=== PATIENT | male | born 1960 | race Caucasian/White ===

== ENCOUNTER 2018-01-02 15:10 | Emergency (ER) | payer OTHER ==
[2018-01-02 15:17] VITALS: TEMP 98.4; O2SAT 98
[2018-01-02] MEDS ORDERED: LIDOCAINE 1% 10 ML VIAL INJ ONE (15:21)
[2018-01-02] MEDS ORDERED: POVIDONE IODINE 10 % 15 ML UD TOP ONE (15:33)
[2018-01-02] MEDS ORDERED: TETANUS,DIPHTHERIA,PERTUSSIS 1 EA SYG IM ONE (15:34)
--- NOTE | 2018-01-02 15:44 | ED.PDOC ---
History of Present Illness - General Chief Complaint: General Stated Complaint: Fish hook to L hand Time Seen by Provider: 01/02/18 15:22 Source: patient Exam Limitations: no limitations - History of Present Illness Initial Comments: PT PRESENTS TO THE ED WITH A FISH HOOK TO THE LEFT 3RD DIGIT. PT REPORTS THAT HE STUMBLED ON A ROCK AND FELL IN THE WATER WHILE HOLDING A HOOK. INCIDENT OCCURRED JUST PRIOR TO ARRIVAL. PT DENIES ANY INJURIES A RESULT OF THE FALL. Timing/Duration: just prior to arrival Severity: moderate Location: hands Allergies/Adverse Reactions: Allergies NO KNOWN ALLERGY Allergy (Verified 01/02/18 15:17) Home Medications: Ambulatory Orders Amoxicillin & Pot Clavulanate [Augmentin] 875 mg PO BID #14 tab 01/02/18 Review of Systems - Review of Systems Constitutional: Denies: chills, fever EENTM: Denies: blurred vision, double vision Respiratory: Denies: cough, short of breath Cardiology: Denies: chest pain, palpitations Musculoskeletal: Denies: joint pain, joint swelling Past Medical History (General) - Patient Medical History Hx Stroke: No Hx Congestive Heart Failure: No Hx Hypertension: - Does not take medication, but has had elevated BP's Hx Diabetes: No - Vaccination History Hx Influenza Vaccination: Yes - 2016 Hx Pneumococcal Vaccination: Yes - Social History Hx Tobacco Use: Yes - Quit 10/2017 Hx Alcohol Use: No Family Medical History - Family History Father Family History: No Known Living Status: Physical Exam - Physical Exam General Appearance: Alert, No apparent distress, Well Developed, Well Groomed, Well Hydrated Eyes, Ears, Nose, Throat Exam: normal ENT inspection Neck: normal inspection Respiratory: no respiratory distress Extremity: normal inspection Skin Exam: warm/dry, normal color Skin Problem Location: upper extremities - LEFT 3RD DIGIT Skin Character: other - SMALL BARBED FISH HOOK EXTENDING OUT THE MEDIAL DISTAL 3RD DIGIT. Procedures - Foreign Body Removal Foreign Body Removal: fish hook - DIGIT WAS BLOCKED USING 1% LIDOCAINE. FISH HOOK WAS PUSHED THROUGH AND PULLED OUT. PT TOLERATED PROCEDURE WELL. FINGER THEN SOAKED IN BETADINE AND SALINE. DRESSING APPLIED BY NURSING STAFF. Foreign Body Physician Comment:: DR. GORDON Departure - Departure Clinical Impression: Fish hook injury of finger, Foreign body (FB) in soft tissue Time of Disposition: 15:48 Disposition: Discharge to Home or Self Care Condition: Good Departure Forms: ED Discharge - Pt. Copy, Patient Portal Self Enrollment Instructions: Foreign Body in Skin (DC) Referrals: [facility] [Provider Group] - 1-5 Days Prescriptions: Amoxicillin & Pot Clavulanate [Augmentin] 875 mg PO BID #14 tab Home Medications: Ambulatory Orders Amoxicillin & Pot Clavulanate [Augmentin] 875 mg PO BID #14 tab 01/02/18
[2018-01-02 15:50] VITALS: BP 153/96
[2018-01-02] MEDS ORDERED: ceFAZolin SODIUM 1 GM VIAL ONE (15:52)
[2018-01-02] MEDS ORDERED: WATER FOR INJ 10 ML VIAL INJ ONE (15:52)
[2018-01-02] MEDS ORDERED: ceFAZolin SODIUM 1 GM VIAL IM ONE ×2 (15:55→15:56)
== END 2018-01-02 16:13 | disposition home or self-care (01) ==
LOC: ER 15:10
DX: S60.453A Superficial foreign body of left middle finger, initial encounter (principal); W45.8XXA Other foreign body or object entering through skin, initial encounter; Z87.891 Personal history of nicotine dependence; Y92.89 Other specified places as the place of occurrence of the external cause; Z23 Encounter for immunization
CPT/HCPCS: 90471; 90715; A4216; J0690

== ENCOUNTER → 2018-04-02 | Outpatient (CLI) | payer OTHER | LOC: GMAM 15:30 | PROVIDERS: ATTEND Family Medicine | DX: Z12.5 Encounter for screening for malignant neoplasm of prostate (principal) ==

== ENCOUNTER → 2019-02-03 | Outpatient (CLI) | payer OTHER | LOC: GMAM 11:41 | PROVIDERS: ATTEND Family Medicine | DX: I10 Essential (primary) hypertension (principal) ==

== ENCOUNTER → 2019-10-01 | Outpatient (CLI) | payer OTHER ==
--- NOTE | 2019-10-01 14:08 | MRI ---
EXAM DESCRIPTION: Knee,Left: MRI. CLINICAL HISTORY: 59 years Male PAIN IN LEFT KNEE COMPARISON: Left knee radiographs on September 25. TECHNIQUE: Multiplanar, high-field MRI, multiple sequences, without contrast: Left knee. FINDINGS: Small focal grade 3 chondrosis medial femoral condyle. Desiccated signal in the medial meniscus with no definite tear. Medial tibial cartilage and subchondral bone is negative. Grade 2 chondrosis lateral femoral condyle with central subchondral spur. Grade 1-2 chondrosis lateral plateau. Minimal desiccation of the meniscus without tear. Anterior cruciate and posterior cruciate ligaments are intact with minimal effusion posterior medial compartment. Increased signal in the undersurface insertion of the medial collateral ligament on the femur. Intermediate signal in the femoral insertion of the fibular collateral ligament. Suprapatellar effusion. Grade 4 chondrosis on the lateral femoral trochlea. Grade 3 to grade 4 chondrosis on the opposing lateral patellar facet. Minimal chondromalacia medial patellar facet. Intermediate signal distal quadriceps tendon. Minimal edema anterior to the patella and patellar tendon. IMPRESSION: 1. Focal grade 3 chondrosis medial femoral condyle. Grade 2 chondrosis lateral femoral condyle with central subchondral or spur. Grade 1-2 chondrosis lateral plateau. Desiccation of the medial and lateral menisci but no tear. Medial compartment effusion. 2. Cruciate ligaments are intact. Grade 1/mild sprain femoral insertion of the medial collateral ligament and fibular insertion of the collateral ligament. 3. Grade 4 chondrosis lateral patellar facet and lateral femoral trochlea. Suprapatellar effusion but no loose bodies. Prepatellar bursitis. Grade 1 tendinosis quadriceps tendon. Electronically signed by: Jimmy Newton MD 10/01/2019 2:07 PM CDT
== END ==
LOC: MRI 10:00
PROVIDERS: ATTEND Family Medicine
DX: S83.412A Sprain of medial collateral ligament of left knee, initial encounter (principal); M23.301 Other meniscus derangements, unspecified lateral meniscus, left knee; M23.304 Other meniscus derangements, unspecified medial meniscus, left knee; M94.262 Chondromalacia, left knee; M70.52 Other bursitis of knee, left knee; M76.892 Other specified enthesopathies of left lower limb, excluding foot; M25.462 Effusion, left knee

== ENCOUNTER → 2019-10-17 | Outpatient (CLI) | payer OTHER ==
--- NOTE | 2019-10-17 14:10 | RAD ---
EXAM DESCRIPTION: Knee,Left 1 or 2 Views CLINICAL HISTORY: 59 years Male, PAIN IN LEFT KNEE 43 AND [place] TECHNIQUE: 2 views of the left knee were performed. COMPARISON: None available. FINDINGS: The visualized bones appear well mineralized. No acute fracture or dislocation. Medial tibiofemoral and lateral patellofemoral joint space narrowing. The soft tissues appear grossly unremarkable. IMPRESSION: Medial tibiofemoral and lateral patellofemoral joint space narrowing. Electronically signed by: Emily Madera MD 10/17/2019 2:09 PM CDT
--- NOTE | 2019-10-17 14:11 | RAD ---
EXAM DESCRIPTION: Pelvis CLINICAL HISTORY: 59 years Male, HIP PAIN LEFT COMPARISON: None. TECHNIQUE: AP radiograph of the pelvis was performed. FINDINGS: The pelvic ring appears grossly intact on this single AP radiograph. No acute fracture or dislocation. Bilateral sacroiliac joints appear normal. Moderate bilateral hip osteoarthritis. The visualized lumbo-sacral spine demonstrates mild degenerative changes. IMPRESSION: Moderate bilateral hip osteoarthritis. Electronically signed by: Emily Madera MD 10/17/2019 2:09 PM CDT
== END ==
LOC: RAD 08:01
PROVIDERS: ATTEND Orthopaedic Surgery
DX: M16.0 Bilateral primary osteoarthritis of hip (principal); M25.862 Other specified joint disorders, left knee

== ENCOUNTER 2020-05-10 15:59 | Emergency (ER) | payer OTHER ==
[2020-05-10] MEDS ORDERED: ALUM & MAG HYDROX-SIMETHICONE 30 ML, LIDOCAINE VISCOUS 2% 15 ML PO ONE ×2 (17:20)
[2020-05-10] MEDS ORDERED: FAMOTIDINE 20 MG TAB PO ONE (17:20)
[2020-05-10] MEDS ORDERED: SODIUM CHLORIDE 0.9% 1000ML 1,000 ML IVS ONE (17:20)
[2020-05-10] MEDS ORDERED: ONDANSETRON ODT 8 MG TAB SL ONE (17:20)
--- NOTE | 2020-05-10 18:03 | RAD ---
EXAM: Abdomen Series CLINICAL INDICATION: Diarrhea, nausea, vomiting COMPARISON: There is no previous study for comparison. FINDINGS: A single view of the chest reveals the heart size is normal. The pulmonary vessels are unremarkable. The lungs are clear. There is no evidence of free air under the hemidiaphragms. 2views of the abdomen were obtained. There is a nonspecific bowel gas pattern with no radiographic evidence of bowel obstruction. There are no dilated loops of small bowel. There is no evidence of pneumoperitoneum or pathologic calcifications. IMPRESSION: No evidence of an acute intraabdominal process. Electronically signed by: Nikolai Pressley MD 05/10/2020 6:01 PM SUPPLIER SPECIALIST
[2020-05-10] MEDS ORDERED: SUCRALFATE 1 GM/10 ML 1 GM UD PO ONE (19:14)
--- NOTE | 2020-05-10 19:31 | ED.PDOC ---
History of Present Illness - General Chief Complaint: General Stated Complaint: body aches, diarrhea, nausea Time Seen by Provider: 05/10/20 17:20 Source: patient Exam Limitations: no limitations - History of Present Illness Initial Comments: The patient is a 59-year-old male presented emergency room secondary to a weeks worth of nausea. Minimal vomiting. No blood in the vomitus when he did. He has had a few episodes of diarrhea over the last 24 to 48 hours as well. Abdominal discomfort is in the epigastric region and it is almost immediately with eating and sometimes even thinking about food. No definite history of gastroesophageal reflux disease. No previous history of stomach ulcers. He is already had his gallbladder taken out. No pain to the right lower quadrant. No history of diverticulitis. No true fevers. He does get diaphoretic after eating. Timing/Duration: 1 week Severity: moderate Improving Factors: nothing Worsening Factors: eating Associated Symptoms: diaphoresis, loss of appetite, nausea/vomiting Allergies/Adverse Reactions: Allergies NO KNOWN ALLERGY Allergy (Verified 05/10/20 19:06) Home Medications: Ambulatory Orders Famotidine [Pepcid Tab] 20 mg PO BID #120 tab 05/10/20 Ondansetron Odt [Zofran ODT] 4 mg PO Q8HR PRN #5 tab 05/10/20 Sucralfate Tab [Carafate Tab] 1 gm PO QID #120 tab 05/10/20 Review of Systems - Review of Systems Constitutional: States: malaise EENTM: States: no symptoms reported Respiratory: States: no symptoms reported Cardiology: States: no symptoms reported Gastrointestinal/Abdominal: States: abdominal pain, diarrhea, nausea, vomiting Genitourinary: States: no symptoms reported Musculoskeletal: States: no symptoms reported Skin: States: no symptoms reported Neurological: States: no symptoms reported Endocrine: States: no symptoms reported All other Systems: No Change from Baseline Past Medical History (General) - Patient Medical History Hx Seizures: No Hx Stroke: No Hx Asthma: No Hx of COPD: No Hx Cardiac Disorders: No Hx Congestive Heart Failure: No Hx Pacemaker: No Hx Hypertension: - Does not take medication, but has had elevated BP's Hx Thyroid Disease: No Hx Diabetes: No Hx Gastroesophageal Reflux: No Hx Renal Disease: No Hx Cancer: No Hx of HIV: No Hx Hepatitis C: No Surgical History: cholecystectomy - Vaccination History Hx Tetanus, Diphtheria Vaccination: Yes Hx Influenza Vaccination: Yes Hx Pneumococcal Vaccination: Yes - Social History Hx Tobacco Use: Yes Hx Alcohol Use: Yes Family Medical History - Family History Father Family History: No Known Living Status: Physical Exam - Physical Exam General Appearance: Alert, Comfortable, No apparent distress Eye Exam: bilateral normal Ears, Nose, Throat: hearing grossly normal, normal pharynx Neck: full range of motion, supple Respiratory: lungs clear, normal breath sounds, no respiratory distress, no accessory muscle use Cardiovascular/Chest: normal peripheral pulses, regular rate, rhythm, no edema Peripheral Pulses: radial,right: 2+, radial,left: 2+ Gastrointestinal/Abdominal: soft, other - Mild epigastric discomfort to palpation. No palpable mass. No rebound or peritoneal signs. No guarding. Rectal Exam: deferred Back Exam: no CVA tenderness, no vertebral tenderness Extremity: non-tender, normal inspection, no pedal edema, normal capillary refill Neurologic: sports team marketing intern II-XII nml as tested, alert, normal mood/affect, oriented x 3 Skin Exam: normal color Comments: Vital Signs - 24 hr 05/10/20 19:01 Temperature 99.7 F H Pulse Rate [ 84 Left Radial] Respiratory 18 Rate Blood Pressure 161/106 [Left Arm] O2 Sat by Pulse 98 Oximetry Progress - Progress Progress: 05/10/20 19:32 The patient is a 59-year-old male presenting with a week's worth of gastrointestinal symptoms. Laboratory work is reassuring. He has tested negative for coronavirus. There is no elevation of white blood cell count, liver function tests or amylase or lipase. No significant point abdominal tenderness. He does have epigastric discomfort and based on the timing of his symptoms, the most likely source is significant gastritis. He was therefore going to be treated with a months worth of Carafate and a couple of months worth of famotidine. He needs to maintain a bland diet for the next week. For the next 24 hours he needs to do a liquid diet. He needs to take small frequent meals. Obviously if the clinical picture changes for the worse then additional evaluation would be warranted. It is noted that the patient does have a family history of pancreatic cancer. Again there is no elevation of the pancreatic enzymes or liver function test at this time. His family history does however need to be discussed further with his primary care doctor at the next available appointment. Vital signs have remained stable. He will also be written for some Zofran for as needed use to control any nausea. ER warnings are given. [id number] - Results/Orders Results/Orders: EKG shows normal sinus rhythm at 83 bpm. Mild left axis deviation. Normal R wave progression. No ST segment or T wave changes indicative of acute ischemia. Mild left atrial dilation. Normal QT interval. Acute abdominal series largely appears benign. Rapid coronavirus test is negative. Laboratory Results - last 24 hr 05/10/20 05/10/20 05/10/20 17:38 17:38 17:38 WBC 3.5 L RBC 4.84 Hgb 15.6 Hct 45.5 MCV 94.0 MCH 32.2 H MCHC 34.3 RDW 12.9 Plt Count 191 MPV 7.1 L Absolute Neuts (auto) 2.00 Absolute Lymphs (auto) 1.00 Absolute Monos (auto) 0.40 Absolute Eos (auto) 0.00 Absolute Basos (auto) 0.00 Neutrophils % 57.3 Lymphocytes % 29.8 Monocytes % 12.2 H Eosinophils % 0.1 L Basophils % 0.6 PT INR PTT (SP) Sodium 135 Potassium 3.5 L Chloride 99 L Carbon Dioxide 25 Anion Gap 14.5 BUN 13 Creatinine 0.90 BUN/Creatinine Ratio 14.4 Random Glucose 91 Serum Osmolality 269.8 L Lactic Acid 1.1 Calcium 8.5 Magnesium Total Bilirubin 1.2 H AST 31 ALT 38 Alkaline Phosphatase 71 Creatine Kinase 111 CK-MB (CK-2) 1.4 CK-MB (CK-2) % Not Reportable Troponin I < 0.02 B-Natriuretic Peptide < 15.0 Serum Total Protein 7.5 Albumin 4.0 Globulin 3.5 Albumin/Globulin Ratio 1.1 Amylase 57 Lipase 36 TSH Urine Color Urine Appearance Urine pH Ur Specific [place] Urine Protein Urine Glucose (UA) Urine Ketones Urine Blood Urine Nitrite Urine Bilirubin Urine Urobilinogen Ur Leukocyte Esterase Urine RBC Urine WBC Ur Epithelial Cells Amorphous Sediment Urine Bacteria Urine Mucus 05/10/20 05/10/20 05/10/20 17:38 17:38 18:08 WBC RBC Hgb Hct MCV MCH MCHC RDW Plt Count MPV Absolute Neuts (auto) Absolute Lymphs (auto) Absolute Monos (auto) Absolute Eos (auto) Absolute Basos (auto) Neutrophils % Lymphocytes % Monocytes % Eosinophils % Basophils % PT 9.9 INR 1.00 PTT (SP) 27.9 Sodium Potassium Chloride Carbon Dioxide Anion Gap BUN Creatinine BUN/Creatinine Ratio Random Glucose Serum Osmolality Lactic Acid Calcium Magnesium 1.8 Total Bilirubin AST ALT Alkaline Phosphatase Creatine Kinase CK-MB (CK-2) CK-MB (CK-2) % Troponin I B-Natriuretic Peptide Serum Total Protein Albumin Globulin Albumin/Globulin Ratio Amylase Lipase TSH 1.33 Urine Color Dk yellow Urine Appearance Clear Urine pH 6.0 Ur Specific [place] >= 1.030 Urine Protein 30 Urine Glucose (UA) Negative Urine Ketones 40 H Urine Blood Small H Urine Nitrite Negative Urine Bilirubin Small H Urine Urobilinogen 1.0 Ur Leukocyte Esterase Negative Urine RBC 0-1 Urine WBC 0 Ur Epithelial Cells 0 Amorphous Sediment 1+ Urine Bacteria 0 Urine Mucus Small Departure - Departure Clinical Impression: Mild dehydration Acute gastritis without hemorrhage Qualifiers: Gastritis type: unspecified gastritis Qualified Code(s): K29.00 - Acute gastritis without bleeding Disposition: Discharge to Home or Self Care Condition: Fair Departure Forms: ED Discharge - Pt. Copy, Patient Portal Self Enrollment Instructions: Gastritis (DC) Diet: bland diet Activity: increase activity as tolerated Referrals: Ehsan Tang MD [Primary Care Provider] - 1-2 Weeks Prescriptions: Ondansetron Odt [Zofran ODT] 4 mg PO Q8HR PRN #5 tab PRN Reason: Nausea--Moderate Sucralfate Tab [Carafate Tab] 1 gm PO QID #120 tab Famotidine [Pepcid Tab] 20 mg PO BID #120 tab Home Medications: Ambulatory Orders Famotidine [Pepcid Tab] 20 mg PO BID #120 tab 05/10/20 Ondansetron Odt [Zofran ODT] 4 mg PO Q8HR PRN #5 tab 05/10/20 Sucralfate Tab [Carafate Tab] 1 gm PO QID #120 tab 05/10/20 Additional Instructions: The patient is a 59-year-old male presenting with a week's worth of gastrointestinal symptoms. Laboratory work is reassuring. He has tested negative for coronavirus. There is no elevation of white blood cell count, liver function tests or amylase or lipase. No significant point abdominal tenderness. He does have epigastric discomfort and based on the timing of his symptoms, the most likely source is significant gastritis. He was therefore going to be treated with a months worth of Carafate and a couple of months worth of famotidine. He needs to maintain a bland diet for the next week. For the next 24 hours he needs to do a liquid diet. He needs to take small frequent meals. Obviously if the clinical picture changes for the worse then additional evaluation would be warranted. It is noted that the patient does have a family history of pancreatic cancer. Again there is no elevation of the pancreatic enzymes or liver function test at this time. His family history does however need to be discussed further with his primary care doctor at the next available appointment. Vital signs have remained stable. He will also be written for some Zofran for as needed use to control any nausea. ER warnings are given. I would like for him to follow back up with his primary care doctor in the coming week.
[2020-05-10 19:42] VITALS: BP 179/102; TEMP 98.9; O2SAT 96
== END 2020-05-10 19:43 | disposition home or self-care (01) ==
LOC: ER 15:59
DX: K29.00 Acute gastritis without bleeding (principal); E86.0 Dehydration; Z20.822 Contact with and (suspected) exposure to COVID-19; Z90.49 Acquired absence of other specified parts of digestive tract; Z87.891 Personal history of nicotine dependence
CPT/HCPCS: 36415; 74019; 80053; 81001; 82150; 82550; 82553; 83605; 83690; 83735; 83880; 84443; 84484; 85025; 85610; 85730; 87040; 87635; 93005; J7030

== ENCOUNTER → 2020-05-19 | Outpatient (CLI) | payer OTHER ==
--- NOTE | 2020-05-19 17:49 | CT ---
EXAM DESCRIPTION: Abdoment/Pelvis w/o Contrast CLINICAL HISTORY: 59 years, Male, acute gastritis without bleeding COMPARISON: None. TECHNIQUE: CT of the abdomen and pelvis is performed according to our non contrast protocol. FINDINGS: The lung bases are clear. Low density liver suggests hepatic steatosis although no definite sparing near the gallbladder fossa. Liver, spleen, and pancreas are otherwise unremarkable. Gallbladder is surgically absent. Adrenal glands appear normal. The right kidney contains a nonobstructing stone 1.1 cm. The left kidney is unremarkable. No ureteral stones or hydronephrosis. Small bowel loops appear normal in caliber with normal wall thickness. There is no lymphadenopathy, inflammation, or free fluid observed. In the pelvis, the appendix is normal. No inflammation around the cecum or terminal ileum or sigmoid colon. No stones in the distal ureters or bladder. Rectal wall thickness is normal for degree of distention. No free fluid or mass in the pelvis. Prostate appears large measuring 5 cm in transverse dimension with mild invagination of the bladder base. No inguinal or lower pelvic adenopathy. Coronal and sagittal reformatted images confirm the findings. IMPRESSION: Nonobstructing right renal stone 1.1 cm. Large prostate. This exam was performed according to our departmental dose-optimization program, which includes automated exposure control, adjustment of the mA and/or kV according to patient size and/or use of iterative reconstruction technique. Total DLP equals 1536.18 mGycm. Electronically signed by: Fede Estrella MD 05/19/2020 5:47 PM WARNING COORDINATION METEOROLOGIST
== END ==
LOC: CT 10:41
PROVIDERS: ATTEND Family Medicine
DX: K29.00 Acute gastritis without bleeding (principal); N40.0 Benign prostatic hyperplasia without lower urinary tract symptoms; N20.0 Calculus of kidney

== ENCOUNTER → 2020-06-11 | Outpatient (CLI) | payer OTHER | LOC: GMAM 11:50 | PROVIDERS: ATTEND Family Medicine | DX: R97.20 Elevated prostate specific antigen [PSA] (principal); E78.2 Mixed hyperlipidemia; I10 Essential (primary) hypertension ==

== ENCOUNTER → 2020-06-22 | Outpatient (CLI) | payer OTHER | LOC: GMAM 11:49 | PROVIDERS: ATTEND Family Medicine | DX: R06.02 Shortness of breath (principal); R10.84 Generalized abdominal pain; R53.83 Other fatigue ==